=== PATIENT | female | born 1990 | race Caucasian/White ===

== ENCOUNTER 2017-04-20 09:28 | Emergency (ER) | payer OTHER ==
[~2017-04-20] VITALS: Ht 170.2 cm; Wt 111.3 kg
[2017-04-20 09:31] VITALS: TEMP 37.1; Ht 170.2 cm; Wt 111.3 kg
[2017-04-20] MEDS ORDERED: VNTHFA/IN INH (09:47)
[2017-04-20] MEDS ORDERED: SPR28 PO (09:47)
[2017-04-20] MEDS ORDERED: CITA20TA4 PO (09:47)
[2017-04-20] MEDS ORDERED: SODIUM CHLORIDE 0.9% 1000ML 1,000 ML IV STA (09:54)
[2017-04-20] MEDS ORDERED: ONDANSETRON INJ 2 MG/ML 2 ML VIAL IV STA (09:54)
[2017-04-20] MEDS ORDERED: MoRPHine SULFATE 10 MG/ML CARP/VIAL IV STA (09:54)
[2017-04-20 10:23] LABS: BASO % 0.2 %; BASO ABS # 0.01 K/uL (0-0.2); COMPLETE YES; EOS % 3.1 %; HEMATOCRIT 40.6 % (37-47); IG% 0.7 %; LYMPH % 22.3 %; LYMPH ABS # 1.37 K/uL (1.2-3.4); MEAN CELL VOLUME 78.5 fL (80-100); MEAN CORPUSCULAR HEMOGLOBIN 26.3 pg (25-34); MEAN CORPUSCULAR HGB CONC 33.5 g/dl (32-36); NEUT % 67.7 %; PLATELET COUNT 254 K/uL (130-400); RED BLOOD COUNT 5.17 M/uL (4.2-5.4); WHITE BLOOD COUNT 6.15 K/uL (4.8-10.8)
[2017-04-20 10:39] LABS: URINE APPEARANCE CLEAR (CLEAR); URINE BILIRUBIN NEG (NEG); URINE COLOR YELLOW; URINE NITRITE NEG (NEG); URINE SPECIFIC GRAVITY 1.028 (1.000-1.030); UROBILINOGEN NEG (NEG); ZZUR CULT IF INDIC CLEAN CATCH NO
[2017-04-20 10:40] LABS: MANUAL MICROSCOPIC REQUIRED? NO; REVIEW REQ? NO
[2017-04-20 10:42] LABS: CREATININE 0.72 mg/dl (0.60-1.20); POTASSIUM 3.6 mmol/L (3.5-5.1)
[2017-04-20 10:45] LABS: ALB/GLOB RATIO 0.8 (0.9-2)
--- NOTE | 2017-04-20 11:27 | DIAGNOSTIC IMAGING REPORT ---
ABDOMEN AND PELVIS CT WITHOUT CONTRAST CT DOSE: 2106.28 mGy.cm HISTORY: EVALUATE L FLANK PAIN TECHNIQUE: Multiaxial CT images of the abdomen and pelvis were performed without the use of intravenous and oral contrast according to the standard department stone protocol. A dose lowering technique was utilized adhering to the principles of ALARA. COMPARISON STUDY: None. FINDINGS: The lung bases are clear. Multiple punctate bilateral renal calculi. No hydronephrosis. No ureteral calculi. Normal bladder. No bowel wall thickening or obstruction. Normal appendix. The spleen is enlarged measuring 17 cm in length. The unenhanced liver, gallbladder, pancreas, and adrenal glands are unremarkable. No retroperitoneal lymphadenopathy. Bilateral ovarian cysts with the largest on the right measuring 3.3 cm. IMPRESSION: 1. Bilateral nephrolithiasis. No ureteral stones. No hydronephrosis. 2. Splenomegaly measuring 17 cm in length. This could be due to infectious, inflammatory, or neoplastic process. Clinical correlation recommended. 3. Bilateral ovarian cysts. Electronically signed by: Davin Veronica M.D. 04/20/2017 11:26 AM Dictated Date/Time: 04/20/2017 11:17 AM
--- NOTE | 2017-04-20 11:33 | DIAGNOSTIC IMAGING REPORT ---
CHEST 2 VIEWS ROUTINE HISTORY: COUGH, URI x 4d COMPARISON: None. FINDINGS: The lungs are clear. Cardiac silhouette is normal in size. No pleural effusions. No pneumothorax. IMPRESSION: No acute process. Electronically signed by: Davin Veronica M.D. 04/20/2017 11:31 AM Dictated Date/Time: 04/20/2017 11:30 AM
[2017-04-20] MEDS ORDERED: HYDROmorphone INJ 0.5 MG/0.5 ML SYR IV STA (11:59)
[2017-04-20] MEDS ORDERED: AZITTAB PO (12:04)
[2017-04-20] MEDS ORDERED: OXYC1TAB3 PO (12:04)
[2017-04-20 12:12] VITALS: BP 131/85; PULSE 68; O2SAT 98
--- NOTE | 2017-04-20 16:36 | EMERGENCY ROOM VISIT NOTE ---
History First contact with patient: 09:40 Chief Complaint: FLU LIKE SX Stated Complaint: FLU LIKE SYMPTOMS History of Present Illness The patient is a 27 year old female who presents to the Emergency Room with complaints of a cold and upper respiratory symptoms for the past 4 days. 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 The patient reports that she developed initial symptoms of sore throat, sinus congestion and clogged ears for the first 24 hours, then started to develop a nonproductive cough. The patient also reports "left kidney pain", reporting a history of multiple kidney stones that had to be surgically removed and percutaneous nephrostomy tube placement in July 2016 at [facility] in [place]. She was admitted for 10 days. The patient reports that her pain feels similar to what she fell with her prior kidney stone. She has not noticed any hematuria, decreased urine output, frequency, urgency or dysuria. The patient rates her overall discomfort a 6 out of 10. Review of Systems HEENT: Denies dizziness, visual problems, hearing loss, tinnitus. Denies difficulty swallowing or oral lesions. PULMONARY: See history of present illness. CARDIOVASCULAR: Denies chest pain, palpitations, dyspnea on exertion, orthopnea or peripheral edema. GASTROINTESTINAL: Denies diarrhea, constipation, nausea, vomiting, or abdominal pain. GENITOURINARY: Denies dysuria, frequency, urgency or nocturia. Otherwise see history of present illness. NEUROLOGIC: Denies history of epilepsy, CVA, TIA or chronic headaches. MUSCULOSKELETAL: Denies history of joint tenderness/swelling. SKIN: Denies rashes or lesions. PSYCHIATRIC: Denies history of depression or mental illness. ENDOCRINE: Denies history of diabetes or thyroid disorders. Past Medical/Surgical History Medical Problems: (1) Kidney stones (2) Sarcoidosis of lung with sarcoidosis of lymph nodes Surgical Problems: (1) History of nephrostomy Family History Unremarkable Social History Smoking Status: Current Every Day Smoker Alcohol Use: occasionally Marital Status: single Housing Status: lives with family Occupation Status: employed Current/Historical Medications Scheduled Azithromycin (Zithromax Z-Evaristo), 0 PO UD Citalopram Hydrobromide (Citalopram Hydrobromide), 1 TAB PO DAILY Ethinyl Estrad/Norgestimate (Sprintec 28), 1 TAB PO DAILY Scheduled PRN Albuterol Hfa (Ventolin Hfa), 2-4 PUFFS INH Q6H PRN for SOB/Wheezing Oxycodone Ir (Roxicodone Ir), 1-2 TAB PO Q4H PRN for Pain Physical Exam Vital Signs Date Time Temp Pulse Resp B/P (MAP) Pulse Ox O2 Delivery O2 Flow Rate FiO2 04/20/17 12:12 68 18 131/85 98 Room Air 04/20/17 11:17 81 16 130/85 98 Room Air 04/20/17 09:31 37.1 84 18 140/88 98 Room Air Pain Rating (0-10): 0 Physical Exam CONSTITUTIONAL: Healthy and well nourished. Alert and oriented X 3 with positive affect. Patient appears in moderate discomfort from pain. HEENT: Normocephalic, atraumatic. Pupils equal, round and reactive. Ears and nares are clear. No scleral icterus or conjunctival injection. No rhinorrhea or significant tenderness to palpation or percussion of the frontal or maxillary sinuses. OROPHARYNX: Minimal posterior pharyngeal erythema without tonsillar hypertrophy or exudates. NECK: Full active range of motion without discomfort. RESPIRATORY: Clear to auscultation bilaterally with no wheezing, crackles, rhonchi or stridor. CARDIOVASCULAR: Regular rate and rhythm with no murmurs, rubs or gallops. GASTROINTESTINAL: Bowel sounds present in all quadrants. Patient has mild tenderness to palpation over the left CVA, but no CVA tenderness. Patient has no other anterior abdominal tenderness to palpation, rigidity, guarding or rebound. Negative McBurney's point tenderness. MUSCULOSKELETAL: Full range of motion of all joints without discomfort. INTEGUMENTARY: No rash or other significant dermatologic conditions noted. HEMATOLOGIC: No ecchymosis or petechiae noted. NEUROLOGIC: No focal neurologic deficits noted. Medical Decision & Procedures ER Provider Diagnostic Interpretation: My interpretation of a two-view chest x-ray does not show any consolidations, pneumothorax, cardiomegaly or other acute findings. Radiologist report is as follows: CHEST 2 VIEWS ROUTINE HISTORY: COUGH, URI x 4d COMPARISON: None. FINDINGS: The lungs are clear. Cardiac silhouette is normal in size. No pleural effusions. No pneumothorax. IMPRESSION: No acute process. Noncontrast CT of the abdomen and pelvis does not show any ureteral calculi or hydronephrosis. She does have multiple nephrolithiasis. The patient also has notable splenomegaly. Radiologist report is as follows: ABDOMEN AND PELVIS CT WITHOUT CONTRAST CT DOSE: 2106.28 mGy.cm HISTORY: EVALUATE L FLANK PAIN TECHNIQUE: Multiaxial CT images of the abdomen and pelvis were performed without the use of intravenous and oral contrast according to the standard department stone protocol. A dose lowering technique was utilized adhering to the principles of ALARA. COMPARISON STUDY: None. FINDINGS: The lung bases are clear. Multiple punctate bilateral renal calculi. No hydronephrosis. No ureteral calculi. Normal bladder. No bowel wall thickening or obstruction. Normal appendix. The spleen is enlarged measuring 17 cm in length. The unenhanced liver, gallbladder, pancreas, and adrenal glands are unremarkable. No retroperitoneal lymphadenopathy. Bilateral ovarian cysts with the largest on the right measuring 3.3 cm. IMPRESSION: 1. Bilateral nephrolithiasis. No ureteral stones. No hydronephrosis. 2. Splenomegaly measuring 17 cm in length. This could be due to infectious, inflammatory, or neoplastic process. Clinical correlation recommended. 3. Bilateral ovarian cysts. Laboratory Results 04/20/17 10:05 Red Blood Count 5.17, Mean Corpuscular Volume 78.5, Mean Corpuscular Hemoglobin 26.3, Mean Corpuscular Hemoglobin Concent 33.5, Mean Platelet Volume 10.0, Neutrophils (%) (Auto) 67.7, Lymphocytes (%) (Auto) 22.3, Monocytes (%) (Auto) 6.0, Eosinophils (%) (Auto) 3.1, Basophils (%) (Auto) 0.2, Neutrophils # (Auto) 4.17, Lymphocytes # (Auto) 1.37, Monocytes # (Auto) 0.37, Eosinophils # (Auto) 0.19, Basophils # (Auto) 0.01 04/20/17 10:05 Test 04/20/17 10:05 04/20/17 10:18 White Blood Count 6.15 K/uL (4.8-10.8) Red Blood Count 5.17 M/uL (4.2-5.4) Hemoglobin 13.6 g/dL (12.0-16.0) Hematocrit 40.6 % (37-47) Mean Corpuscular Volume 78.5 fL (80-100) Mean Corpuscular Hemoglobin 26.3 pg (25-34) Mean Corpuscular Hemoglobin Concent 33.5 g/dl (32-36) Platelet Count 254 K/uL (130-400) Mean Platelet Volume 10.0 fL (7.4-10.4) Neutrophils (%) (Auto) 67.7 % Lymphocytes (%) (Auto) 22.3 % Monocytes (%) (Auto) 6.0 % Eosinophils (%) (Auto) 3.1 % Basophils (%) (Auto) 0.2 % Neutrophils # (Auto) 4.17 K/uL (1.4-6.5) Lymphocytes # (Auto) 1.37 K/uL (1.2-3.4) Monocytes # (Auto) 0.37 K/uL (0.11-0.59) Eosinophils # (Auto) 0.19 K/uL (0-0.5) Basophils # (Auto) 0.01 K/uL (0-0.2) RDW Standard Deviation 38.2 fL (36.4-46.3) RDW Coefficient of Variation 13.6 % (11.5-14.5) Immature Granulocyte % (Auto) 0.7 % Immature Granulocyte # (Auto) 0.04 K/uL (0.00-0.02) Anion Gap 10.0 mmol/L (3-11) Est Creatinine Clear Calc Drug Dose 151.0 ml/min Estimated GFR () 133.0 Estimated GFR (Non- 114.8 BUN/Creatinine Ratio 14.0 (10-20) Calcium Level 9.0 mg/dl (8.5-10.1) Total Bilirubin 0.2 mg/dl (0.2-1) Aspartate Amino Transf (AST/SGOT) 18 U/L (15-37) Alanine Aminotransferase (ALT/SGPT) 18 U/L (12-78) Alkaline Phosphatase 80 U/L (45-117) Total Protein 7.6 gm/dl (6.4-8.2) Albumin 3.3 gm/dl (3.4-5.0) Globulin 4.3 gm/dl (2.5-4.0) Albumin/Globulin Ratio 0.8 (0.9-2) Lipase 243 U/L (73-393) Urine Color YELLOW Urine Appearance CLEAR (CLEAR) Urine pH 6.0 (4.5-7.5) Urine Specific [place]eller 1.028 (1.000-1.030) Urine Protein NEG (NEG) Urine Glucose (UA) TRACE (NEG) Urine Ketones TRACE (NEG) Urine Occult Blood NEG (NEG) Urine Nitrite NEG (NEG) Urine Bilirubin NEG (NEG) Urine Urobilinogen NEG (NEG) Urine Leukocyte Esterase NEG (NEG) Urine Test NEG (NEG) The above labs were reviewed. Urinalysis, CBC, partial renal profile, LFTs and lipase are normal. Medications Administered Medications (Trade) Dose Ordered Sig/Roseanne Route Start Time Stop Time Status Last Admin Dose Admin Sodium Chloride 1,000 ml @ 999 mls/hr Q1H1M STAT IV 04/20/17 09:54 04/20/17 10:54 DC 04/20/17 10:17 999 MLS/HR Morphine Sulfate (MoRPHine SULFATE INJ) 8 mg NOW STAT IV 04/20/17 09:54 04/20/17 09:57 DC 04/20/17 10:17 8 MG Ondansetron HCl (Zofran Inj) 4 mg NOW STAT IV 04/20/17 09:54 04/20/17 09:57 DC 04/20/17 10:16 4 MG Hydromorphone HCl (Dilaudid Inj) 0.5 mg NOW STAT IV 04/20/17 11:59 04/20/17 12:03 DC 04/20/17 12:13 0.5 MG Procedure 1. IV hydration: The patient was administered a normal saline 1 L bolus 2. IV medications: The patient was initially administered morphine 8 mg and Zofran 4 mg IVP. She received an additional Dilaudid 0.5 mg IVP prior to discharge. ED Course Patient history and physical exam were performed. Nurse's notes were reviewed. Vital signs were reviewed and were normal. The patient is afebrile and not tachycardic. Given the patient's history of sarcoidosis, I did feel that additional lab work and chest x-ray were warranted. Also given the patient's prior history of nephrostomy for nephrolithiasis, noncontrast CT of the abdomen and pelvis was also recommended. IV access was established, and labs were drawn. The patient was hydrated with normal saline, and received IV medications as discussed in the previous Procedure section. Review of labs did not show any acute findings. Urinalysis was normal without evidence for hematuria or infection. Noncontrast CT of the abdomen and pelvis shows notable splenomegaly without any evidence for ureteral calculi, hydronephrosis or other acute findings. The patient reports that she has had a prior history of splenomegaly that is documented on prior imaging studies. A two-view chest x-ray did not show any evidence for pneumonia, pneumothorax or other acute findings. The patient was provided a prescription for azithromycin and OxyIR 5 mg. The patient was also encouraged to alternate ibuprofen and Tylenol for baseline pain control. She was encouraged to follow-up with her PCP in 2-3 days for recheck. She was provided a copy and report of her imaging studies, especially her CT scan so that her PCP may compare spleen findings for further management. The patient was instructed to seek further emergent reevaluation for any progressively worsening symptoms. The patient was happy with plan of care, voice understanding of all discharge instructions, and denied any pain at the time of discharge. Medical Decision Patient presents to the emergency department with 2 complaints, including upper respiratory symptoms and left kidney pain. Her workup today does not show any evidence for pneumonia, pneumothorax or other acute intrathoracic findings. Given her upper respiratory symptoms, I suspect she is currently in a viral phase. However, the patient was treated with antibiotics because of her history of sarcoidosis and splenic issues. Flank pain at this time is unknown as the urinalysis is normal. CT scan does not show any evidence for obstructive uropathy or ureteral calculi. At this point, I do not know if her flank pain may be secondary to her splenomegaly. She otherwise does not have any fever or leukocytosis to suggest overwhelming infection. Musculoskeletal etiology was also considered. The case was also discussed with Dr. Echavarria, ED attending physician, who agrees with workup and plan of care. [place] Drug Monitoring Program Search Results: patient reviewed within database Medication Reconcilliation Current Medication List: was personally reviewed by me Blood Pressure Screening Patient's blood pressure: Normal blood pressure Impression Primary Impression: Upper respiratory infection Additional Impressions: Splenomegaly Left flank pain Departure Information Dispostion Home / Self-Care Condition GOOD Prescriptions Oxycodone Ir (Roxicodone Ir) 5 Mg Tab 1-2 TAB PO Q4H Y for Pain, #15 TAB For Initial Treatment Prov: Kobi Angeles PA 04/20/17 Azithromycin (ZITHROMAX Z-EVARISTO) 250 Mg Tab 0 PO UD, #1 PKT 2 TABS DAY 1, THEN 1 TAB DAILY FOR 4 DAYS Prov: Kobi Angeles PA 04/20/17 Referrals No Doctor, Assigned (PCP) Forms HOME CARE DOCUMENTATION FORM, Work Instructions, IMPORTANT VISIT INFORMATION Patient Instructions My [facility] Additional Instructions Take all Augmentin antibiotics as prescribed. Remain well-hydrated Ibuprofen 800 mg and/or Tylenol 1000 mg every 8 hours. You may also alternate these medications for more effective pain relief: Ibuprofen --4 HRS--> Tylenol --4 HRS--> ibuprofen --4 HRS--> Tylenol .... OxyIR if needed for worse pain. Do not drink alcohol or drive while taking this medication. Follow-up with your family doctor for reevaluation in 2-3 days. Discuss your prior imaging studies with your family doctor for comparison of spleen size. Problem Qualifiers Primary Impression: Upper respiratory infection URI type: unspecified viral URI Qualified Codes: J06.9 - Acute upper respiratory infection, unspecified; B97.89 - Other viral agents as the cause of diseases classified elsewhere
== END 2017-04-20 12:34 | disposition home or self-care (01) ==
LOC: C.EDB 09:29
DX: J06.9 Acute upper respiratory infection, unspecified (principal); B97.89 Other viral agents as the cause of diseases classified elsewhere; R16.1 Splenomegaly, not elsewhere classified; R10.9 Unspecified abdominal pain; D86.9 Sarcoidosis, unspecified; F17.200 Nicotine dependence, unspecified, uncomplicated; Z87.442 Personal history of urinary calculi; Z93.6 Other artificial openings of urinary tract status

== ENCOUNTER 2017-06-10 09:26 | Emergency (ER) | payer SELFPAY ==
[~2017-06-10] VITALS: Ht 170.2 cm; Wt 110.0 kg
[~2017-06-10 09:26] MED LIST: CITA20TA4 PO; OXYC1TAB3 PO; SPR28 PO; VNTHFA/IN INH
[2017-06-10 09:29] VITALS: TEMP 36.8; Ht 170.2 cm; Wt 110.0 kg
[2017-06-10 10:26] VITALS: O2SAT 99
[2017-06-10 10:33] LABS: BASO % 0.3 %; BASO ABS # 0.02 K/uL (0-0.2); COMPLETE YES; EOS % 4.1 %; HEMATOCRIT 43.9 % (37-47); IG% 0.7 %; LYMPH % 23.5 %; LYMPH ABS # 1.44 K/uL (1.2-3.4); MEAN CORPUSCULAR HEMOGLOBIN 27.5 pg (25-34); MEAN CORPUSCULAR HGB CONC 34.9 g/dl (32-36); MEAN PLATELET VOLUME 10.3 fL (7.4-10.4); MONO % 5.9 %; NEUT % 65.5 %; PLATELET COUNT 268 K/uL (130-400); RED BLOOD COUNT 5.56 M/uL (4.2-5.4); WHITE BLOOD COUNT 6.13 K/uL (4.8-10.8)
[2017-06-10 10:36] LABS: PREG INTERNAL NEGATIVE QC NEG CLEAR BACKGROUND; PREG INTERNAL POSITIVE QC POS CONTROL LINE
[2017-06-10 10:38] LABS: INR 0.9 (0.9-1.1); PARTIAL THROMBOPLASTIN RATIO 1.1; PROTHROMBIN TIME (PATIENT) 9.9 SECONDS (9.0-12.0)
--- NOTE | 2017-06-10 10:38 | DIAGNOSTIC IMAGING REPORT ---
CHEST ONE VIEW PORTABLE CLINICAL HISTORY: Fever, sepsis, atypical chest pain. COMPARISON STUDY: 04/20/2017 FINDINGS: The cardiac and mediastinal contours are normal. There is no evidence of focal pulmonary consolidation. There is no evidence of failure. No pleural effusions are visualized.[ IMPRESSION: No active disease in the chest. Electronically signed by: Samy Abad M.D. 06/10/2017 10:36 AM Dictated Date/Time: 06/10/2017 10:36 AM
[2017-06-10 10:42] LABS: ALT/SGPT 24 U/L (12-78); BLOOD UREA NITROGEN 12 mg/dl (7-18); BUN/CREATININE RATIO 13.8 (10-20); CALCIUM 9.4 mg/dl (8.5-10.1); CARBON DIOXIDE 23 mmol/L (21-32); CHLORIDE 103 mmol/L (98-107); CREATININE 0.86 mg/dl (0.60-1.20); GLUCOSE 186 mg/dl (70-99); POTASSIUM 3.8 mmol/L (3.5-5.1); SODIUM 137 mmol/L (136-145)
[2017-06-10 10:58] LABS: ALKALINE PHOSPHATASE 90 U/L (45-117); AST/SGOT 18 U/L (15-37)
[2017-06-10 11:24] LABS: URINE APPEARANCE CLEAR (CLEAR); URINE BILIRUBIN NEG (NEG); URINE COLOR YELLOW; URINE NITRITE NEG (NEG); URINE SPECIFIC GRAVITY 1.022 (1.000-1.030); UROBILINOGEN NEG (NEG)
[2017-06-10 11:28] LABS: MANUAL MICROSCOPIC REQUIRED? NO; REVIEW REQ? NO
[2017-06-10] MEDS ORDERED: AZITTAB PO (11:44)
--- NOTE | 2017-06-10 11:46 | EMERGENCY ROOM VISIT NOTE ---
History Report prepared by Justina: Linnea Fregoso Under the Supervision of: Dr. Onel Rivas D.O. First contact with patient: 09:48 Chief Complaint: CARDIAC ASSESSMENT Stated Complaint: CHEST PAIN, FEEL LIKE GOING TO PASS OUT Nursing Triage Summary: has been feeling near syncopal for a week and then this am developed substernal chest pain History of Present Illness The patient is a 27 year old female who presents to the Emergency Room for a cardiac assessment. The patient states that for the past week she has been feeling unwell. She has been feeling lightheaded and dizzy. She also reports a productive cough with greenish sputum. Today she developed constant central chest pain. She describes her pain as stabbing. Coughing exacerbates her pain. The patient rates her pain as a 6/10 in severity. Source of History: patient Onset: [employer] Position: chest Symptom Intensity: 6/10 Quality: stabbing Timing: constant Modifying Factors (Worsening): other (coughing) Associated Symptoms: + cough Note: Pt notes lightheaded and dizziness. Review of Systems See HPI for pertinent positives & negatives. A total of 10 systems reviewed and were otherwise negative. 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 Surgical Problems: (1) History of nephrostomy Family History Cancer Diabetes mellitus Hypertension Kidney disease Kidney stones Social History Smoking Status: Current Every Day Smoker Alcohol Use: occasionally Marital Status: in relationship Housing Status: lives with family Occupation Status: employed Current/Historical Medications Scheduled Azithromycin (Zithromax Z-Evaristo), 0 PO UD Ethinyl Estrad/Norgestimate (Sprintec 28), 1 TAB PO DAILY Scheduled PRN Albuterol Hfa (Ventolin Hfa), 2-4 PUFFS INH Q6H PRN for SOB/Wheezing Allergies Coded Allergies: Amoxicillin (Unverified Allergy, Severe, S.O.B AND RASH, 06/10/17) Physical Exam Vital Signs Date Time Temp Pulse Resp B/P (MAP) Pulse Ox O2 Delivery O2 Flow Rate FiO2 06/10/17 11:45 68 16 169/94 100 Room Air 06/10/17 10:29 89 06/10/17 10:26 99 Room Air 06/10/17 09:29 36.8 100 20 146/84 99 Room Air Physical Exam CONSTITUTIONAL/VITAL SIGNS: Reviewed / noted above. GENERAL: Non-toxic in appearance. INTEGUMENTARY: Warm, dry, and [place]. HEAD: Normocephalic. EYES: without scleral icterus or trauma. ENT/OROPHARYNX: clear and moist. LYMPHADENOPATHY/NECK: Is supple without lymphadenopathy or meningismus. RESPIRATORY: Lungs clear and equal. CARDIOVASCULAR: Regular rate and rhythm. GI/ABDOMEN: Soft and nontender. No organomegaly or pulsatile mass. No rebound or guarding. Normal bowel sounds. EXTREMITIES: Warm and well perfused. BACK: No CVA tenderness. NEUROLOGICAL: Intact without focal deficits. PSYCHIATRIC: normal affect. MUSCULOSKELETAL: Normally developed with good muscle tone. Medical Decision & Procedures ER Provider Diagnostic Interpretation: Radiology results as stated below per my review and radiologist interpretation: CHEST ONE VIEW PORTABLE CLINICAL HISTORY: Fever, sepsis, atypical chest pain. COMPARISON STUDY: 04/20/2017 FINDINGS: The cardiac and mediastinal contours are normal. There is no evidence of focal pulmonary consolidation. There is no evidence of failure. No pleural effusions are visualized.[ IMPRESSION: No active disease in the chest. Electronically signed by: Samy Abad M.D. 06/10/2017 10:36 AM Dictated Date/Time: 06/10/2017 10:36 AM Laboratory Results 06/10/17 09:40 Red Blood Count 5.56, Mean Corpuscular Volume 79.0, Mean Corpuscular Hemoglobin 27.5, Mean Corpuscular Hemoglobin Concent 34.9, Mean Platelet Volume 10.3, Neutrophils (%) (Auto) 65.5, Lymphocytes (%) (Auto) 23.5, Monocytes (%) (Auto) 5.9, Eosinophils (%) (Auto) 4.1, Basophils (%) (Auto) 0.3, Neutrophils # (Auto) 4.02, Lymphocytes # (Auto) 1.44, Monocytes # (Auto) 0.36, Eosinophils # (Auto) 0.25, Basophils # (Auto) 0.02 06/10/17 09:40 Test 06/10/17 09:40 06/10/17 10:35 White Blood Count 6.13 K/uL (4.8-10.8) Red Blood Count 5.56 M/uL (4.2-5.4) Hemoglobin 15.3 g/dL (12.0-16.0) Hematocrit 43.9 % (37-47) Mean Corpuscular Volume 79.0 fL (80-100) Mean Corpuscular Hemoglobin 27.5 pg (25-34) Mean Corpuscular Hemoglobin Concent 34.9 g/dl (32-36) Platelet Count 268 K/uL (130-400) Mean Platelet Volume 10.3 fL (7.4-10.4) Neutrophils (%) (Auto) 65.5 % Lymphocytes (%) (Auto) 23.5 % Monocytes (%) (Auto) 5.9 % Eosinophils (%) (Auto) 4.1 % Basophils (%) (Auto) 0.3 % Neutrophils # (Auto) 4.02 K/uL (1.4-6.5) Lymphocytes # (Auto) 1.44 K/uL (1.2-3.4) Monocytes # (Auto) 0.36 K/uL (0.11-0.59) Eosinophils # (Auto) 0.25 K/uL (0-0.5) Basophils # (Auto) 0.02 K/uL (0-0.2) RDW Standard Deviation 38.1 fL (36.4-46.3) RDW Coefficient of Variation 13.5 % (11.5-14.5) Immature Granulocyte % (Auto) 0.7 % Immature Granulocyte # (Auto) 0.04 K/uL (0.00-0.02) Prothrombin Time 9.9 SECONDS (9.0-12.0) Prothromb Time International Ratio 0.9 (0.9-1.1) Activated Partial Thromboplast Time 28.1 SECONDS (21.0-31.0) Partial Thromboplastin Ratio 1.1 Anion Gap 11.0 mmol/L (3-11) Est Creatinine Clear Calc Drug Dose 125.6 ml/min Estimated GFR () 107.3 Estimated GFR (Non- 92.6 BUN/Creatinine Ratio 13.8 (10-20) Calcium Level 9.4 mg/dl (8.5-10.1) Total Bilirubin 0.3 mg/dl (0.2-1) Direct Bilirubin < 0.1 mg/dl (0-0.2) Aspartate Amino Transf (AST/SGOT) 18 U/L (15-37) Alanine Aminotransferase (ALT/SGPT) 24 U/L (12-78) Alkaline Phosphatase 90 U/L (45-117) Total Creatine Kinase 66 U/L (26-192) Creatine Kinase MB < 0.5 ng/ml (0.5-3.6) Creatine Kinase MB Ratio (0-3.0) Troponin I < 0.015 ng/ml (0-0.045) Total Protein 8.4 gm/dl (6.4-8.2) Albumin 3.7 gm/dl (3.4-5.0) Thyroid Stimulating Hormone (TSH) 2.130 uIu/ml (0.300-4.500) Human Chorionic Gonadotropin, Qual NEG (NEG) Urine Color YELLOW Urine Appearance CLEAR (CLEAR) Urine pH 5.0 (4.5-7.5) Urine Specific [place] 1.022 (1.000-1.030) Urine Protein NEG (NEG) Urine Glucose (UA) NEG (NEG) Urine Ketones NEG (NEG) Urine Occult Blood NEG (NEG) Urine Nitrite NEG (NEG) Urine Bilirubin NEG (NEG) Urine Urobilinogen NEG (NEG) Urine Leukocyte Esterase NEG (NEG) Laboratory results as stated above per my review. ECG Indication: chest pain Rate (beats per minute): 94 Rhythm: normal sinus Findings: no acute ischemic change, no ectopy ED Course 0949: Previous medical records were reviewed. The patient was evaluated in room A4B. A complete history and physical examination was performed. 1148: I reassessed the patient at this time. She is feeling better and resting comfortably. I discussed the results and treatment plan with the patient. I answered all pertaining questions that she had. She expressed understanding and verbalized agreement. The patient will be discharged home. Medical Decision Differentials considered include acute myocardial infarction, acute coronary syndrome, myocarditis, pericarditis, pericardial effusions /tamponade, esophageal perforation, thoracic aortic dissection, pulmonary embolism, pneumonia, pneumothorax, pancreatitis, shingles, acute cholecystitis, and perforated abdominal viscus. This is a 27-year-old female who presents to the ED with a chief complaint of chest pain and near-syncope. She has had the symptoms and ultimately for the past week. Today she developed the chest pain and she has had the intermittent lightheaded this for about a week. She describes her pain as a constant stabbing pain in the center of her chest. She states that she developed a cough with yellow sputum. She has had the cough for about a week as well. Her vital signs are normal. Her physical exam was unremarkable. CBC and complete metabolic panel were unremarkable. His glucose was 186. test was negative. Urine did not show infection. Chest x-ray was negative for acute disease. The patient was told results of the test. She was told to follow-up for her hyperglycemia to be stable for discharge. She was given a prescription for Zithromax. Medication Reconcilliation Current Medication List: was personally reviewed by me Blood Pressure Screening Patient's blood pressure: Normal blood pressure Impression Primary Impression: Bronchitis Additional Impression: Hyperglycemia Scribe Attestation The scribe's documentation has been prepared under my direction and personally reviewed by me in its entirety. I confirm that the note above accurately reflects all work, treatment, procedures, and medical decision making performed by me. Departure Information Dispostion Home / Self-Care Prescriptions Azithromycin (ZITHROMAX Z-EVARISTO) 250 Mg Tab 0 PO UD, #1 PKT 2 TABS DAY 1, THEN 1 TAB DAILY FOR 4 DAYS Prov: Onel Rivas, DLuisa. 06/10/17 Referrals No Doctor, Assigned (PCP) Patient Instructions Bronchitis Acute, Hyperglycemia, [facility] Additional Instructions Your symptoms are consistent with a bronchitis. Zithromax as prescribed. Your blood sugar today was elevated. This could indicate diabetes. Follow-up with your doctor for recheck of this. Problem Qualifiers
[2017-06-10 12:06] VITALS: BP 169/94; PULSE 68; O2SAT 100
== END 2017-06-10 12:06 | disposition home or self-care (01) ==
LOC: C.EDB 09:27 → C.EDA 12:06
DX: J40 Bronchitis, not specified as acute or chronic (principal); R73.9 Hyperglycemia, unspecified; D86.2 Sarcoidosis of lung with sarcoidosis of lymph nodes; F17.200 Nicotine dependence, unspecified, uncomplicated; Z79.3 Long term (current) use of hormonal contraceptives; Z87.442 Personal history of urinary calculi; Z83.3 Family history of diabetes mellitus; Z82.49 Family history of ischemic heart disease and other diseases of the circulatory system; Z84.1 Family history of disorders of kidney and ureter